=== PATIENT | male | born 1970 | race Caucasian/White ===

== ENCOUNTER 2022-12-07 15:46 | Emergency (ER) | payer OTHER, SELFPAY ==
[2022-12-07 15:47] VITALS: BP 134/79; PULSE 78; RESP 16; TEMP 36.6; O2SAT 99; BMI 28.0
--- NOTE | 2022-12-07 16:48 | EDS_ITS ---
HPI History of Present Illness Chief Complaint: Lower Extremity Injury [facility]formant[facility] cephalexin 500 mg capsule 500 mg PO Q6 ##40 04/29/14 [Rx Last Taken Unknown] sulfamethoxazole 800 mg-trimethoprim 160 mg tablet 1 tab PO BID ##20 04/29/14 [Rx Last Taken Unknown] Allergy/AdvReac Type Severity Reaction Status Date / Time No Known Allergies Allergy Verified 12/07/22 15:47 Social History Smoking Status: Never smoker EXAM Physical Exam Const Vital Signs: 12/07/22 15:47 Temperature 97.8 F Temperature Source Temporal Pulse Rate 78 Respiratory Rate 16 Blood Pressure 134/79 H Blood Pressure Mean 97 Pulse Ox 99 Oxygen Delivery Method Room Air Discharge Plan Triage Chief Complaint: Lower Extremity Injury ED Provider: Dillon Cervantes Dx/Rx/DC Orders Prescriptions: No Action sulfamethoxazole-trimethoprim 1 TABLET tablet 1 tab PO BID Qty: 20 0RF cephalexin 500 MG capsule 500 mg PO Q6 Qty: 40 0RF Primary Care Provider: Hipolito Carrillo Referrals: Hipolito Carrillo PA [Primary Care Provider] -
--- NOTE | 2022-12-07 16:48 | ED.VIS.LOWEX ---
HPI History of Present Illness Chief Complaint: Lower Extremity Injury Informant: patient Narrative Narrative: Patient was at work when he pushed a rather heavy concrete garbage can. He felt an immediate pop in the mid portion of his left calf. Short for so he iced it. He then felt a little better walking around. He has not lost function but it is slightly sore. He feels it might be swollen. No other injury. No numbness or tingling. No anticoagulation. In fact the patient is on no medicines and has no medical problems. It sore if you press it but other than that nothing really bothers it. PFSH PFS Home Medications cephalexin 500 mg capsule 500 mg PO Q6 ##40 04/29/14 [Rx Last Taken Unknown] sulfamethoxazole 800 mg-trimethoprim 160 mg tablet 1 tab PO BID ##20 04/29/14 [Rx Last Taken Unknown] Allergy/AdvReac Type Severity Reaction Status Date / Time No Known Allergies Allergy Verified 12/07/22 15:47 Social History Smoking Status: Never smoker ROS ROS ED Constitutional Constitutional ED: Denies chills or fever(s) Cardiovascular Cardiovascular: Denies chest pain or palpitations Respiratory/Chest Respiratory/Chest: Denies cough Gastrointestinal Gastrointestinal: Denies nausea or vomiting Musculoskeletal Musculoskeletal: Reports myalgias and other Details: See history of present illness. Integumentary Denies rash Neurologic Neurologic: Denies paresthesias or weakness Hematologic/Lymphatic Hematologic/Lymphatic: Denies easy bleeding or easy bruising Allergic/Immunologic Allergic/Immunologic ED: Denies urticaria EXAM Physical Exam Narrative Exam Narrative: Patient awake alert sitting comfortably in bed in no acute distress. HEENT shows no trauma Cardiorespiratory shows easy unlabored breathing. Saturations are normal at 99% on room air showing no hypoxia. Upper extremities show no injury. Right lower extremity is normal. Left lower extremity does show some slight fullness of the calf when compared to right. Both of these were undressed and looked at and examined. He has a little tenderness in the mid calf. But he has a very palpable Achilles tendon. He was rolled on his abdomen and Ramesh test showed normal function of his Achilles. He can press on the gas without difficulty although that does cause some discomfort he is able to do it quite well. No tenderness at the calcaneus. No tenderness or pain with dress of the ankle. No pain posteriorly by the knee. No distended veins. Const Vital Signs: 12/07/22 15:47 Temperature 97.8 F Temperature Source Temporal Pulse Rate 78 Respiratory Rate 16 Blood Pressure 134/79 H Blood Pressure Mean 97 Pulse Ox 99 Oxygen Delivery Method Room Air MDM MDM MDM Narrative Medical decision making narrative: By his exam and history this patient did not rupture his Achilles. He likely tore the plantaris tendon. He had a immediate pop with some pain and mild swelling. It was explained that this will resolve. There is a small percentage of people that may develop DVT and he may need ultrasound the future. Ultrasound is not needed at this time as this injury just occurred a few hours ago. There is no indication for x-ray because he has no bony pain tenderness or difficulty with walking. No indication for blood work. No sign of significant bleeding or bruising or illness that would require blood work to be done. I also printed an information sheet off the Internet as we do not have a discharge instruction for plantaris tendon rupture. Discharge Plan Triage Chief Complaint: Lower Extremity Injury ED Provider: Dillon Cervantes Dx/Rx/DC Orders Clinical Impression: Rupture of left plantaris tendon Instructions: ED Muscle Strain, Extremity Prescriptions: No Action sulfamethoxazole-trimethoprim 1 TABLET tablet 1 tab PO BID Qty: 20 0RF cephalexin 500 MG capsule 500 mg PO Q6 Qty: 40 0RF Primary Care Provider: Hipolito Carrillo Referrals: Lance Barajas MD [Med Staff - Active Staff] - 1 Week Hipolito Carrillo PA [Primary Care Provider] - Activity Restrictions/Additional Instructions: May use Tylenol, Motrin, Aleve [id number] for mild soreness. Avoid frequent steps or any use or climbing of ladders for safety until fully healed and pain-free. Disposition Disposition: Home, Self Care
== END 2022-12-07 17:04 | disposition home or self-care (01) ==
PROVIDERS: Emergency Provider Emergency Medicine; PCP Physician Assistant; Visit Provider Emergency Medicine
DX: S86.812A Strain of other muscle(s) and tendon(s) at lower leg level, left leg, initial encounter (principal); X50.9XXA Other and unspecified overexertion or strenuous movements or postures, initial encounter; Y99.0 Civilian activity done for income or pay
CPT/HCPCS: 99282